=== PATIENT | male | born 1950 | race Caucasian/White ===

== ENCOUNTER 2019-10-22 14:19 | Inpatient (IN) | payer OTHER ==
[~2019-10-22] VITALS: Ht 175.3 cm; Wt 93.0 kg
--- NOTE | 2019-10-22 14:19 | NUR ---
BROUGHT IN BY [facility] FROM [facility], PLACED IN BED #3 AND TRIAGED. REPORT GIVEN TO EMANUEL
[2019-10-22 14:20] VITALS: BP_SYST 119
--- NOTE | 2019-10-22 14:25 | NUR ---
pt c/o BLE swelling and pain in feet. AO4, no visible distress, RR even and unlabored on RA. 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
--- NOTE | 2019-10-22 14:30 | NUR ---
ER at bedside examining patient.
[2019-10-22] MEDS ORDERED: SSNOVOLOG SUBCUT (15:31)
[2019-10-22] MEDS ORDERED: ASPI-1153 PO (15:31)
[2019-10-22] MEDS ORDERED: TAMS-11 PO (15:31)
[2019-10-22] MEDS ORDERED: APIX2.5T PO (15:31)
[2019-10-22] MEDS ORDERED: DIPH25CA83 PO (15:31)
[2019-10-22] MEDS ORDERED: INSULIN DETEMIR SQ (15:31)
[2019-10-22] MEDS ORDERED: GABA-531 PO (15:31)
[2019-10-22] MEDS ORDERED: ferrous sulfate PO (15:31)
[2019-10-22] MEDS ORDERED: DILT180C67 PO (15:31)
[2019-10-22] MEDS ORDERED: PRO40 PO (15:31)
[2019-10-22] MEDS ORDERED: LIP80 PO (15:31)
[2019-10-22 15:37] LABS: BASOPHILS % (AUTO) 0.3 % (0.0-2.0); EOSINOPHILS # (AUTO) 0.6 K/uL (0.0-0.4); EOSINOPHILS % (AUTO) 4.5 % (0.0-4.0); HEMATOCRIT 32.3 % (36-54); HEMOGLOBIN 10.8 g/dL (14.0-18.0); LYMPHOCYTES # (AUTO) 1.7 K/uL (1.0-5.5); LYMPHOCYTES % (AUTO) 12.9 % (20.5-51.5); MEAN CORPUSCULAR HEMOGLOBIN 30 pg (27-31); MEAN CORPUSCULAR HGB CONC 33 % (32-36); MEAN CORPUSCULAR VOLUME 89 fL (79.0-98.0); MONOCYTES # (AUTO) 0.9 K/uL (0.0-1.0); NEUTROPHILS # (AUTO) 9.9 K/uL (1.8-7.7); NEUTROPHILS % (AUTO) 75.3 % (40.0-70.0); PLATELET COUNT (AUTO) 271 K/uL (130-430); RED BLOOD CELL COUNT(AUTO) 3.64 MIL/uL (4.2-6.2); RED CELL DISTRIBUTION WIDTH 14.1 % (9.0-15.0); WHITE BLOOD COUNT (AUTO) 13.2 K/uL (4.8-10.8)
--- NOTE | 2019-10-22 15:40 | NUR ---
18 gauge angiocath placed to L AC. Use of asceptic technique. Opsite placed over site. Blood return noted. Blood for lab drawn from site. Flushed with 10 cc of normal saline. No evidence of infiltration noted. Patient tolerated well.
[2019-10-22 15:51] LABS: ANION GAP 8 (5-15); CALCIUM 8.2 mg/dL (8.4-11.0); CHLORIDE 100 mmol/L (98-107); CREATININE 1.78 mg/dL (0.55-1.30); GLUCOSE 165 mg/dL (70-99); POTASSIUM 4.4 mmol/L (3.5-5.1); SODIUM SERUM 133 mmol/L (136-145); UREA NITROGEN, BLOOD 22 mg/dL (8-21)
[2019-10-22 15:57] LABS: ALANINE AMINOTRANSFERASE 17 U/L (12-78); ALBUMIN 2.4 g/dL (3.4-4.8); ASPARTATE AMINOTRANSFERASE 9 U/L (10-37); TOTAL BILIRUBIN 0.6 mg/dL (0.0-1.0)
--- NOTE | 2019-10-22 16:38 | NUR ---
Pt V/S stable pt resting in bed
--- NOTE | 2019-10-22 16:58 | NUR ---
Patient will be admitted to care of Dr. Flowers. Admitted to telemetry unit. Waiting for room assignment. Belongings list completed. Complete and up to date summary report printed. SBAR report to be given at bedside with opportunity for questions.
[2019-10-22] MEDS ORDERED: NACL 0.9% 1,000 ML IV SCH (17:00)
--- NOTE | 2019-10-22 17:20 | NUR ---
Transfer to [facility] via [facility]S protocol. Licensed nurse present. IV present no signs or symptoms of infiltration.
--- NOTE | 2019-10-22 17:30 | NUR ---
FOLLOW UP CONSULT FOR DR.DAVID GLYNN.
--- NOTE | 2019-10-22 17:35 | NUR ---
ADMISSION NOTE Received patient from ER via [facility], received report from RN. Patient admitted with diagnosis of heart failure, and GI bleed. Patient oriented to hospital routine, call light, toileting and safety-patient verbalized understanding.
[2019-10-22 17:52] VITALS: BP_SYST 143
[2019-10-22] MEDS ORDERED: INSULIN ASPART 100 UNITS/ML, 10 ML VIAL (NovoLOG) SUBCUT PRN (18:15)
[2019-10-22] MEDS ORDERED: DIPHENHYDRAMINE HCL 25 MG CAPSULE PO PRN (18:15)
--- NOTE | 2019-10-22 18:22 | NUR ---
CONSULTATION PAGED/CALLED Reason for Consultation: HEART FAILURE Person Who was Notified: EMMANUELLE Consulting Physician: [facility] Machine Feeder Specialty: CARDIO Ordering Physician:
--- NOTE | 2019-10-22 18:26 | NUR ---
CONSULTATION PAGED/CALLED Reason for Consultation:GI BLEED Person Who was Notified: EMMANUELLE Consulting Physician: Trouble Shooter Specialty: GI Ordering Physician:
[2019-10-22] MEDS ORDERED: GOLYTELY / COLYTE SOLUTION 4 LITERS PO ONE (18:30)
[2019-10-22] MEDS ORDERED: BISACODYL 5 MG TABLET.DR (DULCOLAX) PO ONE (18:30)
[2019-10-22] MEDS ORDERED: GLUCOSE 15 GM GEL (in 37.5 GM TUBE) PO PRN (18:45)
[2019-10-22] MEDS ORDERED: D5W 1,000 ML IV PRN (18:45)
[2019-10-22] MEDS ORDERED: DEXTROSE 50%-WATER 50 ML DISP.SYRIN IVP PRN (18:45)
--- NOTE | 2019-10-22 18:47 | NUR ---
closing note patient resting in bed at this time, A/ox4, no complaints of pain. IV patent, intact. No infiltration noted. on safety and aspiration precautions, HOB kept elevated, bed alarm on, 3 side rails up, call light within reach. patient in stable condition. All needs met.
[2019-10-22 18:59] LABS: BASOPHILS % (AUTO) 0.3 % (0.0-2.0); EOSINOPHILS # (AUTO) 0.7 K/uL (0.0-0.4); EOSINOPHILS % (AUTO) 4.9 % (0.0-4.0); HEMATOCRIT 32.7 % (36-54); HEMOGLOBIN 10.9 g/dL (14.0-18.0); LYMPHOCYTES # (AUTO) 2.3 K/uL (1.0-5.5); LYMPHOCYTES % (AUTO) 16.7 % (20.5-51.5); MEAN CORPUSCULAR HEMOGLOBIN 30 pg (27-31); MEAN CORPUSCULAR HGB CONC 33 % (32-36); MEAN CORPUSCULAR VOLUME 88 fL (79.0-98.0); MONOCYTES # (AUTO) 1.2 K/uL (0.0-1.0); MONOCYTES % (AUTO) 8.4 % (1.7-9.3); NEUTROPHILS # (AUTO) 9.8 K/uL (1.8-7.7); NEUTROPHILS % (AUTO) 69.7 % (40.0-70.0); PLATELET COUNT (AUTO) 262 K/uL (130-430); RED CELL DISTRIBUTION WIDTH 14.1 % (9.0-15.0); WHITE BLOOD COUNT (AUTO) 14.1 K/uL (4.8-10.8)
--- NOTE | 2019-10-22 19:35 | NUR ---
ROUNDS PATIENT RESTING COMFORTABLY IN BED, NOT IN DISTRESS, VITALS STABLE. DENIES ANY PAIN AND DISCOMFORT AT THIS TIME. ASSESSMENT DONE AND DOCUEMNTED. SEE FLOWSHEET. NEEDS ATTENDED TO. SAFETY AND FALL MEASURES IN PLACED. CALL LIGHT PLACED WITHIN REACH.
[2019-10-22] MEDS: GABAPENTIN 300 MG CAPSULE PO SCH (20:30)
[2019-10-22] MEDS: DILTIAZEM HCL 180 MG CAP.SR.24H PO SCH (20:31)
[2019-10-22] MEDS: ATORVASTATIN 20 MG TABLET PO SCH (20:31)
[2019-10-22] MEDS: D5/0.45 NS 1,000 ML IV SCH (20:35)
--- NOTE | 2019-10-23 00:14 | NUR ---
PATIENT RESTING: Patient resting quietly. No acute distress noted. Vital signs within normal range.
[2019-10-23 01:24] VITALS: BP_SYST 152
--- NOTE | 2019-10-23 02:16 | NUR ---
ROUNDS PATIENT ASLEEP, NO SOB NOR PAIN AND DISCOMFORT NOTED. WILL CONTINUE TO MONITOR.
--- NOTE | 2019-10-23 04:12 | NUR ---
PATIENT RESTING: Patient resting quietly. No acute distress noted. Vital signs within normal range.
--- NOTE | 2019-10-23 06:50 | NUR ---
CLOSING NOTES PATIENT AWAKE, VITALS STABLE, DENIES ANY PAIN AND DISCOMFORT AT THIS TIME. ALL NEEDS ATTENDED TO. SAFETY MEASURES MAINTAINED. CALL LIGHT PLACED WITHIN REACH.
[2019-10-23] MEDS ORDERED: SIMETHICONE 40 MG/0.6 ML ML ONE (06:58)
[2019-10-23] MEDS: fentaNYL CITRATE/PF 100 MCG/2 ML AMP ONE ×3 (07:00→07:37)
[2019-10-23] MEDS: MIDAZOLAM HCL 5 MG/5 ML VIAL ONE ×4 (07:00→07:46)
--- NOTE | 2019-10-23 07:15 | NUR ---
Opening note/ coloscopy Patient left for colonoscopy in a wheelchair. Patient in stable condition.
[2019-10-23] MEDS ORDERED: MIDAZOLAM HCL 5 MG/5 ML VIAL ONE (07:44)
[2019-10-23 07:56] LABS: BASOPHILS % (AUTO) 0.3 % (0.0-2.0); EOSINOPHILS # (AUTO) 0.6 K/uL (0.0-0.4); EOSINOPHILS % (AUTO) 4.8 % (0.0-4.0); HEMATOCRIT 30.8 % (36-54); HEMOGLOBIN 10.2 g/dL (14.0-18.0); LYMPHOCYTES # (AUTO) 1.5 K/uL (1.0-5.5); LYMPHOCYTES % (AUTO) 12.1 % (20.5-51.5); MEAN CORPUSCULAR HEMOGLOBIN 30 pg (27-31); MEAN CORPUSCULAR HGB CONC 33 % (32-36); MEAN CORPUSCULAR VOLUME 89 fL (79.0-98.0); MONOCYTES # (AUTO) 0.9 K/uL (0.0-1.0); MONOCYTES % (AUTO) 7.5 % (1.7-9.3); NEUTROPHILS # (AUTO) 9.5 K/uL (1.8-7.7); NEUTROPHILS % (AUTO) 75.3 % (40.0-70.0); PLATELET COUNT (AUTO) 249 K/uL (130-430); RED BLOOD CELL COUNT(AUTO) 3.47 MIL/uL (4.2-6.2); RED CELL DISTRIBUTION WIDTH 13.7 % (9.0-15.0); WHITE BLOOD COUNT (AUTO) 12.7 K/uL (4.8-10.8)
[2019-10-23 09:09] LABS: ANION GAP 6 (5-15); CALCIUM 8.3 mg/dL (8.4-11.0); CHLORIDE 106 mmol/L (98-107); CREATININE 1.76 mg/dL (0.55-1.30); GLUCOSE 217 mg/dL (70-99); POTASSIUM 4.8 mmol/L (3.5-5.1); SODIUM SERUM 136 mmol/L (136-145); UREA NITROGEN, BLOOD 18 mg/dL (8-21)
[2019-10-23 09:15] VITALS: BP_SYST 146
[2019-10-23] MEDS: TAMSULOSIN HCL 0.4 MG CAP PO SCH (09:18)
[2019-10-23] MEDS: GABAPENTIN 300 MG CAPSULE PO SCH ×3 (09:18→20:54)
[2019-10-23] MEDS: DILTIAZEM HCL 180 MG CAP.SR.24H PO SCH ×2 (09:19→20:54)
[2019-10-23] MEDS: PANTOPRAZOLE SODIUM 40 MG TAB PO SCH (09:19)
--- NOTE | 2019-10-23 09:25 | NUR ---
Patient returned from colonoscopy Patient returned from colonoscopy. patient in stable condition. All morning medications given as ordered. no nausea, no vomiting.
[2019-10-23 09:53] LABS: BILIRUBIN,URINE NEGATIVE (NEGATIVE); CLARITY/URINE CLEAR (CLEAR); COLOR,URINE YELLOW (YELLOW); GLUCOSE,URINE TRACE (NEGATIVE); KETONES,URINE NEGATIVE (NEGATIVE); LEUKOCYTE ESTERASE ,URINE NEGATIVE (NEGATIVE); NITRITE, URINE NEGATIVE (NEGATIVE); PROTEIN URINE 2+ (NEGATIVE); UROBILINOGEN,URINE 0.2 (0.2-1.0)
[2019-10-23 09:57] LABS: BLOOD, URINE TRACE (NEGATIVE)
[2019-10-23 10:03] LABS: BACTERIA,URINE FEW /HPF (None Seen); RBC,URINE 0-3 /HPF (0-3); WBC,URINE 0-3 /HPF (0-3)
--- NOTE | 2019-10-23 10:09 | NUR ---
UA Urine sample collected and sent to lab. water pitcher refilled. No other needs at this time.
--- NOTE | 2019-10-23 11:22 | NUR ---
rounds Offered to assist patient to the bedside commode, patient denied need. no other needs at this time.
[2019-10-23] MEDS: INSULIN LISPRO SLIDING SCALE 100 UNITS/ML VIAL (humaLOG) SUBCUT PRN ×3 (11:40→21:02)
[2019-10-23 12:06] VITALS: BP_SYST 122
--- NOTE | 2019-10-23 12:41 | NUR ---
Rounds patient sitting up in bed eating lunch, tolerating well. No nausea, no vomiting noted. no complaints of abdominal pain.
--- NOTE | 2019-10-23 14:30 | NUR ---
rounds Patient resting in bed at this time, no complaints of pain. Patient requesting large salad for dinner. called kitchen left message. No other needs at this time.
[2019-10-23] MEDS: D5/0.45 NS 1,000 ML IV SCH (14:45)
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
--- NOTE | 2019-10-23 16:30 | NUR ---
linen change skin care provided, linens changed. water pitcher refilled. No other needs at this time.
[2019-10-23 19:50] VITALS: BP_SYST 126
--- NOTE | 2019-10-23 19:50 | NUR ---
INITIAL NOTE AT INITIAL ASSESSMENT, PATIENT IS RESTING IN BED, STABLE, NO SIGNS OF RESPIRATORY DISTRESS. PATIENT VERBALIZES NO PAIN. PLAN OF CARE FOR THE NIGHT IS DISCUSSED WITH THE PATIENT AT THIS TIME. PATIENT IS SUCCESSFULLY DEMONSTRATES CORRECT USAGE OF OF CALL LIGHT. CALL LIGHT IS PLACED WITHIN REACH OF PATIENT'S HAND. BED IS LOCKED, ALARMED, AND AT THE LOWEST LEVEL. FALL, SAFETY, AND RESPIRATORY PRECAUTIONS WILL BE IN PLACE THROUGHOUT THE SHIFT.
--- NOTE | 2019-10-23 20:30 | NUR ---
DR. ELIAS ROUNDS DR. ELIAS IS AT PATIENT'S BEDSIDE AT THIS TIME MAKING ROUNDS, NEW ORDERS GIVEN. ORDERS READ BACK, VERIFIED, AND ENTERED.
[2019-10-23] MEDS: ATORVASTATIN 20 MG TABLET PO SCH (20:53)
--- NOTE | 2019-10-23 21:50 | NUR ---
NOTE BLOOD SUGAR CHECK AT THIS TIME REQUIRED INSULIN COVERAGE PER SSI ORDERED BY MD. SCHEDULED NIGHT TIME MEDICATIONS ARE GIVEN AT THIS TIME, PATIENT TOLERATED WELL. PATIENT IS RESTING IN BED, STABLE, NO SIGNS OF RESPIRATORY DISTRESS. CALL LIGHT IS WITHIN REACH. BED IS LOCKED, ALARMED, AND AT THE LOWEST LEVEL.
--- NOTE | 2019-10-23 23:45 | NUR ---
NOTE PATIENT IS SLEEPING, STABLE, NO SIGNS OF RESPIRATORY DISTRESS. CALL LIGHT IS WITHIN REACH. BED IS LOCKED, ALARMED, AND AT THE LOWEST LEVEL.
--- NOTE | 2019-10-23 23:53 | NUR ---
ADMISSION NOTE Received patient from ER via [employer]. Patient admitted with diagnosis of TIA . Patient is awake, alert, oriented. Patient oriented to hospital room, call light, toileting, pain management and safety-teach back done. Patient informed that JEFFERY will be HER nurse and that their room number is 119B. Personal belongings checked and Belongings List documented. Call light within reach. Addendum: 10/24/19 at 0649 by Jeffery Washington RN NOTE INTENDED FOR DIFFERENT PATIENT.
[2019-10-24] VITALS: BP_SYST 118
--- NOTE | 2019-10-24 01:45 | NUR ---
NOTE PATIENT IS SLEEPING, STABLE, NO SIGNS OF RESPIRATORY DISTRESS. CALL LIGHT IS WITHIN REACH. BED IS LOCKED, ALARMED, AND AT THE LOWEST LEVEL.
--- NOTE | 2019-10-24 03:45 | NUR ---
NOTE PATIENT IS SLEEPING, STABLE, NO SIGNS OF RESPIRATORY DISTRESS. CALL LIGHT IS WITHIN REACH. BED IS LOCKED, ALARMED, AND AT THE LOWEST LEVEL.
--- NOTE | 2019-10-24 05:20 | NUR ---
NOTE PATIENT IS RESTING IN BED WATCHING TV, STABLE, NO SIGNS OF RESPIRATORY DISTRESS. CALL LIGHT IS WITHIN REACH. BED IS LOCKED, ALARMED, AND AT THE LOWEST LEVEL.
--- NOTE | 2019-10-24 06:59 | NUR ---
CLOSING NOTE BLOOD SUGAR CHECK THIS MORNING REQUIRED NO INSULIN COVERAGE PER SSI ORDERED BY MD. AT THIS TIME, PATIENT IS RESTING IN BED, STABLE, NO SIGNS OF RESPIRATORY DISTRESS. CALL LIGHT IS PLACED WITHIN REACH OF PATIENT'S HAND. BED IS LOCKED, ALARMED, AND AT THE LOWEST LEVEL. FALL, SAFETY, AND NEUROLOGICAL PRECAUTIONS HAVEN BEEN IN PLACE THROUGHOUT THE SHIFT.
--- NOTE | 2019-10-24 07:19 | NUR ---
INITIAL NOTE PT RESTING IN BED, NO ACUTE DISTRESS NOTED, BREATHING EVEN AND UNLABORED. IVF SALINE LOCKED. CALL LIGHT WITHIN REACH, BED IN LOW AND LOCKED POSITION WITH BED ALARM ON.
[2019-10-24 08:00] VITALS: BP_SYST 141
[2019-10-24 08:27] LABS: BASOPHILS % (AUTO) 0.3 % (0.0-2.0); EOSINOPHILS # (AUTO) 0.5 K/uL (0.0-0.4); EOSINOPHILS % (AUTO) 4.1 % (0.0-4.0); HEMATOCRIT 30.5 % (36-54); HEMOGLOBIN 10.2 g/dL (14.0-18.0); LYMPHOCYTES # (AUTO) 1.7 K/uL (1.0-5.5); MEAN CORPUSCULAR HEMOGLOBIN 30 pg (27-31); MEAN CORPUSCULAR HGB CONC 33 % (32-36); MEAN CORPUSCULAR VOLUME 89 fL (79.0-98.0); MONOCYTES # (AUTO) 0.9 K/uL (0.0-1.0); MONOCYTES % (AUTO) 7.7 % (1.7-9.3); NEUTROPHILS # (AUTO) 8.2 K/uL (1.8-7.7); NEUTROPHILS % (AUTO) 72.9 % (40.0-70.0); PLATELET COUNT (AUTO) 242 K/uL (130-430); RED BLOOD CELL COUNT(AUTO) 3.45 MIL/uL (4.2-6.2); WHITE BLOOD COUNT (AUTO) 11.2 K/uL (4.8-10.8)
[2019-10-24] MEDS: TAMSULOSIN HCL 0.4 MG CAP PO SCH (08:39)
[2019-10-24] MEDS: PANTOPRAZOLE SODIUM 40 MG TAB PO SCH (08:39)
[2019-10-24] MEDS: GABAPENTIN 300 MG CAPSULE PO SCH ×3 (08:40→21:19)
[2019-10-24] MEDS: DILTIAZEM HCL 180 MG CAP.SR.24H PO SCH ×2 (08:40→21:00)
[2019-10-24 08:53] LABS: ALANINE AMINOTRANSFERASE 15 U/L (12-78); ALBUMIN 2.2 g/dL (3.4-4.8); ANION GAP 6 (5-15); ASPARTATE AMINOTRANSFERASE 12 U/L (10-37); CALCIUM 8.4 mg/dL (8.4-11.0); CHLORIDE 105 mmol/L (98-107); CREATININE 1.67 mg/dL (0.55-1.30); GLUCOSE 134 mg/dL (70-99); POTASSIUM 4.5 mmol/L (3.5-5.1); SODIUM SERUM 136 mmol/L (136-145); THYROID STIMULATING HORMONE 1.85 uIu/mL (0.36-3.74); TOTAL BILIRUBIN 0.9 mg/dL (0.0-1.0); UREA NITROGEN, BLOOD 14 mg/dL (8-21)
[2019-10-24 09:18] LABS: CHOLESTEROL 123 mg/dL (<200); HDL CHOLESTEROL 32 mg/dL (>45); LDL CHOLESTEROL 75 mg/dL (<100); TRIGLYCERIDES 147 mg/dL (30-150)
--- NOTE | 2019-10-24 09:30 | NUR ---
RN ROUNDS PT AWAKE, RESTING IN BED. PT DENIES ANY PAIN OR DISCOMFORT. WILL CONTINUE TO MONITOR.
--- NOTE | 2019-10-24 09:56 | NUR ---
Nutrition Update Miguel Scale 18 noted. Pt admitted for heart failure and GI bleed Diet: regular, cardiac, 2gmNa BMI: 30.3 kg/m2 RD to follow per nutrition care standards.
[2019-10-24] MEDS: INSULIN LISPRO SLIDING SCALE 100 UNITS/ML VIAL (humaLOG) SUBCUT PRN ×3 (11:13→21:27)
--- NOTE | 2019-10-24 11:25 | NUR ---
BSG 207 EDUCATED PT ON USES AND SIDE EFFECTS OF INSULIN LISPRO. PT VERBALIZED UNDERSTANDING. 4 UNITS OF LISPRO ADMINISTERED. PT TOLERATED WELL. PT DENIES ANY PAIN OR DISCOMFORT AT THIS TIME.
[2019-10-24 12:00] VITALS: BP_SYST 127
--- NOTE | 2019-10-24 13:30 | NUR ---
RN ROUNDS PT AWAKE, RESTING IN BED. DENIES ANY DISCOMFORT AT THIS TIME. WILL CONTINUE TO MONITOR.
--- NOTE | 2019-10-24 15:24 | NUR ---
RN ROUNDS PT AWAKE, ADMINISTERED SCHEDULED MEDICATION. PT DENIES ANY DISCOMFORT AT THIS TIME.
[2019-10-24 16:05] VITALS: BP_SYST 123
--- NOTE | 2019-10-24 17:44 | NUR ---
RN ROUNDS PT IN HIGH FOWLERS POSITION EATING DINNER. DENIES ANY PAIN OR DISCOMFORT AT THIS TIME. WILL CONTINUE TO MONITOR.
--- NOTE | 2019-10-24 18:28 | NUR ---
CLOSING NOTE PT RESTING IN BED, NO ACUTE DISTRESS NOTED, BREATHING EVEN AND UNLABORED. IV SALINE LOCKED. CALL LIGHT WITHIN REACH, BED IN LOW AND LOCKED POSITION WITH BED ALARM ON. ALL NEEDS MET THROUGHOUT SHIFT. WILL CONTINUE TO MONITOR UNTIL PT CARE IS ENDORSED TO PHONE SPECIALIST RN.
[2019-10-24 20:00] VITALS: BP_SYST 124
[2019-10-24] MEDS: ATORVASTATIN 20 MG TABLET PO SCH (21:18)
--- NOTE | 2019-10-24 22:08 | NUR ---
Patient in bed. No acute distress noted. Will continue to monitor.
--- NOTE | 2019-10-25 06:16 | NUR ---
No change in patient's current assessment.
--- NOTE | 2019-10-25 07:15 | NUR ---
INITIAL NOTE PT AWAKE, DENIES ANY PAIN OR DISCOMFORT. EMPTIED OUT URINAL, 800CC, CLEAR AND YELLOW. CALL LIGHT WITHIN REACH, BED IN LOW AND LOCKED POSITION WITH BED ALARM ON.
[2019-10-25 08:00] VITALS: BP_SYST 147
--- NOTE | 2019-10-25 08:05 | NUR ---
DR. LAUREL GOFF AT BEDSIDE EXAMINING PT. PT COMPLAINING OF CONSTIPATION. NEW ORDERS RECEIVED BY FOR COLACE 100MG BID, VERIFIED WITH READ BACK.
[2019-10-25] MEDS: GABAPENTIN 300 MG CAPSULE PO SCH ×3 (08:52→21:37)
[2019-10-25] MEDS: DOCUSATE SODIUM 100 MG CAPSULE PO SCH ×2 (08:52→21:37)
[2019-10-25] MEDS: PANTOPRAZOLE SODIUM 40 MG TAB PO SCH (08:52)
[2019-10-25] MEDS: TAMSULOSIN HCL 0.4 MG CAP PO SCH (08:52)
[2019-10-25] MEDS: DILTIAZEM HCL 180 MG CAP.SR.24H PO SCH ×2 (08:53→21:00)
--- NOTE | 2019-10-25 09:30 | NUR ---
RN ROUNDS PT RESTING IN BED, NO ACUTE DISTRESS NOTED, BREATHING EVEN AND UNLABORED.
[2019-10-25] MEDS: INSULIN LISPRO SLIDING SCALE 100 UNITS/ML VIAL (humaLOG) SUBCUT PRN ×3 (11:17→21:50)
--- NOTE | 2019-10-25 11:30 | NUR ---
RN ROUNDS ASSISTED PT TO BEDSIDE COMMODE, PT TOLERATED WELL. SMALL SOLID BOWEL MOVEMENT. ASSISTED PT BACK IN TO BED. REPOSITIONED FOR COMFORT.
--- NOTE | 2019-10-25 11:39 | NUR ---
Discharge Planning: JOANNEP faxed pt referral to [facility] (f [phone] p [phone]) per request, GHULAM made [facility] aware pending DC order. Addendum: 10/25/19 at 1449 by Inge Dobson DP GHULAM followed up with [facility] (f [phone] p [phone]) patient will go to room 26A, she is arranging transport and auth will call back with information. Addendum: 10/25/19 at 1522 by Inge Dobson DP [facility] ([phone]) Rm 26A, [facility] ([phone]) 8:00pm P/U Auth# [id number]. Igor made aware patient packet taken to nurse station.
[2019-10-25 12:00] VITALS: BP_SYST 131
--- NOTE | 2019-10-25 13:52 | NUR ---
RN ROUNDS PT SEMI FOWLERS POSITION, DENIES ANY PAIN OR DISCOMFORT AT THIS TIME. WILL CONTINUE TO MONITOR.
--- NOTE | 2019-10-25 15:08 | NUR ---
DR. ELIAS SPOKE W/ MD VIA PHONE, INFORMED MD PT HAS A BED AT [facility]. MD TO DISCHARGE PT. VERIFIED WITH READ BACK.
--- NOTE | 2019-10-25 15:32 | NUR ---
REPORT TO [facility]/FAMILY REPORT GIVEN TO DEDRA CHRIS. INFORMED RN PRETZEL TWISTING MACHINE OPERATOR TIME WILL BE AT 8PM BY [facility]. PT WILL BE TAKEN TO ROOM 26A. CALLED SON, TITA CANDEALRIA, NO ANSWER. WILL AWAIT RETURN CALL.
[2019-10-25 16:00] VITALS: BP_SYST 128
--- NOTE | 2019-10-25 16:20 | NUR ---
RN ROUNDS PT SITTING UP IN BED. PROVIDED ORAL HYGIENE MATERIAL, SOCKS AND ANTIPERSPIRANT.
[2019-10-25 18:05] VITALS: BP_SYST 128
--- NOTE | 2019-10-25 18:21 | NUR ---
CLOSING NOTE PT AWAKE, HIGH FOWLERS POSITION EATING DINNER. DENIES ANY PAIN OR DISCOMFORT. IV SALINE LOCKED. PT AWARE OF TRANSFER TO [facility], HOUSE FATHER TIME AT 8PM, PT AGREEABLE WITH TRANSFER. CALL LIGHT WITHIN REACH, BED IN LOW AND LOCKED POSITION WITH BED ALARM ON. ALL NEEDS MET THROUGHOUT SHIFT. WILL CONTINUE TO MONITOR UNTIL PT CARE IS ENDORSED TO LASER SYSTEMS ENGINEER RN.
[2019-10-25 20:00] VITALS: BP_SYST 125
[2019-10-25] MEDS: ATORVASTATIN 20 MG TABLET PO SCH (21:36)
--- NOTE | 2019-10-25 22:32 | NUR ---
[facility] Ambulance staff here for transport.
== END 2019-10-25 22:00 | DRG 393 ==
LOC: SED 14:19 → STU 16:52
PROVIDERS: ADMIT Internal Medicine; ATTEND Internal Medicine
PROC: 0DBM8ZZ Excision of Descending Colon, Via Natural or Artificial Opening Endoscopic (ICD-10-PCS; 2019-10-23)
PROC: 0DBL8ZZ Excision of Transverse Colon, Via Natural or Artificial Opening Endoscopic (ICD-10-PCS; 2019-10-23)
PROC: 0DBH8ZX Excision of Cecum, Via Natural or Artificial Opening Endoscopic, Diagnostic (ICD-10-PCS; 2019-10-23)
PROC: 0DBK8ZZ Excision of Ascending Colon, Via Natural or Artificial Opening Endoscopic (ICD-10-PCS; principal; 2019-10-23 08:15)
PROC: 0DBN8ZZ Excision of Sigmoid Colon, Via Natural or Artificial Opening Endoscopic (ICD-10-PCS; 2019-10-23 08:15)
DX: K63.5 Polyp of colon (principal); E43 Unspecified severe protein-calorie malnutrition; N18.4 Chronic kidney disease, stage 4 (severe); I48.20 Chronic atrial fibrillation, unspecified; I13.0 Hypertensive heart and chronic kidney disease with heart failure and stage 1 through stage 4 chronic kidney disease, or unspecified chronic kidney disease; K57.90 Diverticulosis of intestine, part unspecified, without perforation or abscess without bleeding; K64.4 Residual hemorrhoidal skin tags; D64.9 Anemia, unspecified; E11.22 Type 2 diabetes mellitus with diabetic chronic kidney disease; E78.5 Hyperlipidemia, unspecified; F03.90 Unspecified dementia, unspecified severity, without behavioral disturbance, psychotic disturbance, mood disturbance, and anxiety; K21.9 Gastro-esophageal reflux disease without esophagitis; E11.40 Type 2 diabetes mellitus with diabetic neuropathy, unspecified; I50.9 Heart failure, unspecified; K64.8 Other hemorrhoids; N40.0 Benign prostatic hyperplasia without lower urinary tract symptoms; Z79.01 Long term (current) use of anticoagulants; Z79.4 Long term (current) use of insulin; Z79.82 Long term (current) use of aspirin; Z79.899 Other long term (current) drug therapy; Z87.891 Personal history of nicotine dependence
CPT/HCPCS: 36415; 45380; 45384; 71045; 80048; 80053; 80061; 81000-TC; 82550-TC; 82962; 83880; 84443-TC; 84484; 85025; 87081; 87086; 88305; 93005; 93306; 99285; G0378; J2250; J3010